=== PATIENT | female | born 1950 | race Caucasian/White ===

== ENCOUNTER → 2016-07-13 | Outpatient (CLI) | payer OTHER ==
--- NOTE | 2016-07-13 17:47 | MA ---
Screening Digital Mammogram With iCAD Analysis Clinical Indications: Routine screening. The patient has had a benign left breast surgical biopsy. Technique: Standard cephalocaudal projections are obtained. Digital breast tomosynthesis was performe d in the MLO projection with reconstruction at 1.0 mm slice thickness and composite MLO views reconst ructed. A skin marker is placed on the left breast surgical scar. This examination is processed by [facility] computer aided detection system. Comparison: March 2014, October 2011, September 2010, June 2009, September 2007. Breast density: Type D: Extremely dense. Findings: CAD was reviewed. No masses, suspicious calcifications or secondary signs of malignancy are seen. There has been no significant change in the appearance of either breast. Impression: Negative mammogram. BI-RADS 1. Recommendation: Routine mammographic screening in one year as long as physical examination is negativ e in this patient with extremely dense breast parenchyma. [facility] will send a result letter to the patient. Negative mammography should not preclude additional workup of a clinically suspicious finding. The patient's information is entered into a reminder system with a target due date for her next mammo gram.
== END ==
LOC: FIMAGING 13:41
DX: Z12.31 Encounter for screening mammogram for malignant neoplasm of breast (principal)
CPT/HCPCS: G0202

== ENCOUNTER → 2016-08-01 | Outpatient (CLI) | payer OTHER ==
--- NOTE | 2016-08-01 09:06 | US ---
Limited Abdominal Ultrasound History: Abnormal LFTs.. Technique: Longitudinal and transverse images of the right upper quadrant were obtained. Findings: The gallbladder is well visualized and there is no cholelithiasis. The right upper quadrant Patel sign is negative. The common duct is of normal caliber and there is no intrahepatic ductal di latation. The inferior vena cava and portal venous structures appear normal. The liver and right ki dney are normal. The pancreas as visualized appears normal although portions are obstructed by overly ing bowel gas. The aorta tapers normally. Portions of the aorta are obscured by overlying bowel gas. Impression: Negative right upper quadrant ultrasound.
== END ==
LOC: FIMAGING 07:29
PROVIDERS: ATTEND Family Medicine
DX: R74.8 Abnormal levels of other serum enzymes (principal)

== ENCOUNTER → 2018-11-30 | Outpatient (CLI) | payer OTHER | LOC: FIMAGING 12:13 ==